=== PATIENT | male | born 1980 | race Caucasian/White ===

== ENCOUNTER 2018-04-11 17:37 | Emergency (ER) | payer OTHER, BC ==
[~2018-04-11] VITALS: Ht 180.3 cm; Wt 92.1 kg
[2018-04-11] MEDS ORDERED: LATU20TA PO (17:56)
[2018-04-11] MEDS ORDERED: ZOLOFT50 MG PO (17:56)
[2018-04-11] MEDS ORDERED: CEPHALEXIN500 M1 PO (18:49)
== END 2018-04-11 19:20 | disposition home or self-care (01) ==
LOC: ED 17:37
DX: S51.012A Laceration without foreign body of left elbow, initial encounter (principal); F84.0 Autistic disorder; Z79.899 Other long term (current) drug therapy; W22.8XXA Striking against or struck by other objects, initial encounter; Y93.89 Activity, other specified; Y92.69 Other specified industrial and construction area as the place of occurrence of the external cause; Y99.9 Unspecified external cause status